=== PATIENT | female | born 1965 | race Caucasian/White ===

== ENCOUNTER 2020-09-16 09:02 | Outpatient (CLI) | payer OTHER ==
[2020-09-16] MEDS ORDERED: GLAT40SY SQ (09:44)
[2020-09-16 11:02] VITALS: BP 145/82
[2020-09-16 11:27] VITALS: BP 129/76
[2020-09-16 11:54] VITALS: BP 121/66
[2020-09-16 11:59] VITALS: BP 119/68
--- NOTE | 2020-09-16 12:04 | NUR ---
LP discharge instructions reviewed with patient and copy given to take home with her. No complaints of pain at this time and she verbalized understanding of instructions.
[2020-09-16 12:10] LABS: BASO # 0.1 x10^3/uL (0.0-0.2); BASO % 1 % (0-3); EOS # 0.2 x10^3/uL (0.0-0.7); EOS % 4 % (0-3); HEMATOCRIT 39.2 % (36.0-47.0); HEMOGLOBIN 13.7 g/dL (12.0-15.5); LYMPH # 1.2 x10^3/uL (1.0-4.8); LYMPH % 26 % (24-48); MEAN CORPUSCULAR HEMOGLOBIN 33 pg (25-35); MEAN CORPUSCULAR HGB CONC 35 g/dL (31-37); MEAN CORPUSCULAR VOLUME 95 fL (79-100); MONO # 0.3 x10^3/uL (0.0-1.1); MONO % 7 % (0-9); NEUT # 2.8 x10^3/uL (1.8-7.7); NEUT % 61 % (31-73); PLATELET COUNT 218 x10^3/uL (140-400); RED BLOOD COUNT 4.14 x10^6/uL (3.50-5.40); RED CELL DISTRIBUTION WIDTH 12.5 % (11.5-14.5); WHITE BLOOD COUNT 4.6 x10^3/uL (4.0-11.0)
[2020-09-16 12:12] LABS: CSF PROTEIN 34.9 mg/dL (15.0-45.0)
[2020-09-16 12:27] LABS: ALBUMIN 3.4 g/dL (3.4-5.0); ALBUMIN/GLOBULIN RATIO 1.1 (1.0-1.7); CALCIUM 9.3 mg/dL (8.5-10.1); CREATININE 0.9 mg/dL (0.6-1.0); GFR 65.2; POTASSIUM 4.3 mmol/L (3.5-5.1); TOTAL BILIRUBIN 0.4 mg/dL (0.2-1.0); TOTAL PROTEIN 6.4 g/dL (6.4-8.2)
[2020-09-16 12:29] LABS: CSF CLARITY CLEAR; CSF COLOR COLORLESS; CSF RBC COUNT 10 /cmm (Not Established); CSF WBC COUNT 1 /cmm (Not Established)
--- NOTE | 2020-09-16 17:26 | RAD ---
Fluoroscopically Guided Lumbar Puncture for CSF Sampling: Clinical History: Multiple sclerosis. Procedure: The relative benefits, risks and alternatives to the procedure were discussed and verbal written informed consent was obtained. The patient was placed prone and slightly oblique on the fluoroscopic table and bony landmarks were used to plan for a lumbar puncture. The patient was carefully prepped and draped in a sterile fashion and with local anesthetic and sterile technique, a 22-gauge needle was advanced at the left L3-L4 interlaminar level. Clear CSF was seen and approximately 13 ml of clear fluid was aspirated and sent for testing. The procedure was well tolerated and the patient was sent to Recovery in good condition. Patient was later sent home in good condition with instructions to contact physician should if developed signs or symptoms of pain, bleeding or infection. The patient was also encouraged to drink of oral fluids to decrease chances of having a spinal headache. Total patient fluoro time: 0.2 minutes. Impression: Status post uncomplicated fluoroscopic guided lumbar puncture for spinal tap. Electronically signed by: Jorge Monterroso MD (09/16/2020 5:23 PM) [id number]
[2020-09-20 15:18] LABS: ALBUMIN,CSF 22 mg/dL (11-48); ALBUMIN,SERUM 3.9 g/dL (3.8-4.9); CSF IGG INDEX 0.6 (0.0-0.7); IGG,SERUM 801 mg/dL (586-1602)
== END 2020-09-16 12:10 | disposition home or self-care (01) ==
LOC: RAD 09:02
PROVIDERS: ATTEND Nurse Practitioner Family
DX: G35 Multiple sclerosis (principal); G97.1 Other reaction to spinal and lumbar puncture; Z88.0 Allergy status to penicillin
CPT/HCPCS: 36415; 62270; 62328; 80053; 82787; 82945; 83916; 84157; 85025; 87015; 87071; 87075; 87102; 87252; 89051

== ENCOUNTER → 2020-11-14 | Outpatient (CLI) | payer OTHER ==
[~2020-11-14] MED LIST: GLAT40SY SQ
--- NOTE | 2020-11-14 15:03 | RAD ---
EXAM: Bilateral digital screening mammogram with tomosynthesis. HISTORY: 55-year-old female presents for screening mammography. TECHNIQUE: Full-field digital craniocaudal and mediolateral oblique 2D and 3D tomosynthesis images of both breasts are obtained for evaluation. Computer aided detection was applied. COMPARISON: 02/19/2017 BREAST PARENCHYMAL DENSITY: Level B - Scattered fibroglandular densities. FINDINGS: There is no new suspicious mass, microcalcification or region of architectural distortion. There are stable areas of asymmetry and nodularity within both breasts, allowing for differences in i maging technique. IMPRESSION: BI-RADS Category 2: Benign finding(s). RECOMMENDATION: Annual mammography is recommended. If your mammogram demonstrates that you have dense breast tissue, which could hide abnormalities, and if you have other risk factors for breast cancer that have been identified, you might benefit from s upplemental screening tests that may be suggested by your ordering physician. Dense breast tissue, i n and of itself, is a relatively common condition. This information is not provided to cause undue c oncern, but rather to raise your awareness and to promote discussion with your physician regarding th e presence of other risk factors, in addition to dense breast tissue. A report of your mammography re sults will be sent to you and your physician. You should contact your physician if you have any ques tions or concerns regarding this report. Mammography is a sensitive method for finding small breast cancers, but it does not detect them all a nd is not a substitute for careful clinical examination. A negative mammogram does not negate a clin ically suspicious finding and should not result in delay in biopsying a clinically suspicious abnorma lity. PQRS compliance statement - Patient information was entered into a reminder system with a target due date for the next mammogram. "Our facility is accredited by the [employer] Mammography [employer]." Electronically signed by: Cecile Morrell MD (11/14/2020 3:01 PM) [id number]
== END ==
LOC: MAMMO 13:48
PROVIDERS: ATTEND Nurse Practitioner Family
DX: Z12.31 Encounter for screening mammogram for malignant neoplasm of breast (principal)
CPT/HCPCS: 77063; 77067

== ENCOUNTER → 2021-11-17 | Outpatient (CLI) | payer OTHER ==
--- NOTE | 2021-11-18 08:35 | RAD ---
BILATERAL DIGITAL SCREENING 2-D AND 3-D MAMMOGRAM INDICATION: Routine screening. COMPARISON: Prior exams including one of 11/14/2020. Interpretation was made using CAD. FINDINGS: Breast Density: A RIGHT BREAST: No suspicious masses, calcifications or areas of architectural distortion are seen. LEFT BREAST: No suspicious masses, calcifications or areas of architectural distortion are seen. IMPRESSION: 1. No imaging evidence of malignancy. ASSESSMENT: BI-RADS 1. Negative. RECOMMENDATION: Routine annual screening mammogram. The facility will notify the patient of the results via mail. Patient information will be entered int o the mammography reminder system with a target recall date for the next mammogram. A reminder letter will be generated by the facility. Electronically signed by: Lambert Garsia Jr., MD (11/18/2021 8:32 AM) [id number]
== END ==
LOC: MAMMO 15:30
PROVIDERS: ATTEND Nurse Practitioner Family
DX: Z12.31 Encounter for screening mammogram for malignant neoplasm of breast (principal)
CPT/HCPCS: 77063; 77067